=== PATIENT | female | born 2000 | race Caucasian/White ===

== ENCOUNTER 2018-07-23 11:35 | Emergency (ER) | payer OTHER, SELFPAY ==
[2018-07-23 11:37] VITALS: BP 133/73; PULSE 65; RESP 16; TEMP 36.7; O2SAT 99
--- NOTE | 2018-07-23 11:46 | US_ITS ---
STUDY: ULTRASOUND OF THE FEMALE PELVIS - COMPLETE REASON FOR EXAM: Female, 17 years old. Bleeding for 5 months LMP: TECHNIQUE: Transvaginal TECHNICAL QUALITY: Adequate. COMPARISON: None. FINDINGS: The uterus is anteverted and is in a midline position. The uterus measures 6.8 x 5.3 x 3.6 cm. On the transverse view there is a suggestion of an echogenicity towards the cervix measures approximately 5.3 x 2.6 mm not definitively seen on the sagittal view. The endometrium measures 3 mm in thickness, and is hyperechoic. There is no demonstrated endometrial mass. There is a focal fluid density within the endometrium somewhat distending the lower uterine endometrial canal from 3 mm to 6 mm. There is no demonstrated myometrial mass. I.U.D. - The patient does not have an I.U.D. The right ovary is visualized. The right ovary measures 3.6 x 2.5 x 1.8 cm. There is a right ovarian cyst, measuring 1.7 x 1.2 x 0.8 cm. There are multiple small right ovarian follicles. There is no visualized right adnexal mass or complex lesion. There is normal arterial and normal venous vascularity. The left ovary is visualized. The left ovary measures 2.8 x 1.9 x 1.4 cm. Multiple small ovarian follicles. There is no visualized left adnexal mass or complex lesion. There is normal arterial and normal venous vascularity. There is no fluid in the cul-de-sac. The pre void volume of the bladder was ml. The post void volume of the bladder was ml. Polycystic ovary disease: Not excluded. US/Transvaginal Non- IMPRESSION: Possible small endometrial mass or polyp. Fluid density within the endometrium. Small bilateral ovarian follicles with one dominant right ovarian follicle. Recommend correlation with laboratory values could possibly indicate polycystic ovarian disease. No evidence of ovarian torsion. Electronically Signed: Leonora Prajapati MD at 14:26 EST Tel , Service support ,
--- NOTE | 2018-07-23 12:01 | ED.VISSUMM ---
- ER Visit Summary Date of Service: 07/23/18 Chief Complaint: Vaginal bleeding History of Present Illness: The patient is a 17 F with vaginal bleeding for 5 months. Over the last week it has become much more severe and she has used 4 tampons and pads just over the last few hours. She is also reporting lower abdominal cramping for the past 3 days bilaterally. She never had this before. She thought that the bleeding might be from a Nexplanon placement as she read that it can cause some spotting. She has been tolerating it up to the last several days. No other associated symptoms. No urinary symptoms. No discharge. No other GI symptoms or pain. Physical Examination: Afebrile and vital signs unremarkable. Skin appears normal. Heart regular. Lungs clear. Abdomen soft and nontender. Test Results: Laboratory studies, urinalysis, and ultrasound pending. Emergency Department Course and Treatment: Patient declined pain medicine and nausea medicine while awaiting results. CBC normal. CMP and coags unremarkable. Urinalysis and test negative. Ultrasound showed a small endometrial mass or polyp with fluid in the endometrium. She has multiple cysts concerning for PCOS. Patient has stable vital signs. I believe she is appropriate for outpatient follow-up. She was referred to Dr. Vang for follow up. Treatment Plan: As above Disposition: Discharge Impression: 1. Vaginal bleeding This note was generated with [employer] dictation software. It may contain incorrect words, spelling, and punctuation that were not noted in review of the chart prior to signing ED Disposition - Plan for ED Patient: Chief Complaint: Vag Bleeding Referrals: Albin Koch MD [Primary Care Provider] -
[2018-07-23 12:14] LABS: Bacteria 0 SEEN /hpf (None Seen); Mucous, Urine 0 SEEN /hpf (<or=2+); Squamous Epithelial Cells - UA 0 SEEN /hpf (5-10); White Blood Cells 0 SEEN /hpf (0-5)
[2018-07-23 12:16] LABS: Absolute Lymphocyte Count 1.96 X10^3/ul (0.83-4.51); Absolute Neutrophil Count 3.6 X10^3/uL (2.0-7.7); Basophil# 0.02 X10^3/uL; Basophil% 0.3 % (0-1); Eosinophil# 0.04 X10^3/uL; Eosinophils% 0.7 % (0-5); Hematocrit 40.1 % (37-47); Hemoglobin 13.5 g/dl (12.0-15.0); Lymphocyte # 1.96 X10^3/ul (4.0); Lymphocyte % 32.1 % (19-41); Mean Corp Hgb Conc 33.7 g/gl (32-36); Mean Corpuscular Hgb 29.9 pg (27.0-32.0); Mean Corpuscular Volume 88.7 fL (81-99); Mean Platelet Vol. 9.4 fl (6.2-12.0); Monocyte# 0.45 X10^3/uL; Monocyte% 7.4 % (0-10); Neutrophil # 3.64 X10^3/uL (2.7-7.7); Neutrophil % 59.5 % (47-70); POSITIVE COUNT NO; POSITIVE DIFFERENTIAL NO; POSITIVE MORPHOLOGY NO; Platelet Count 244 K/mm3 (150-450); RBC Distribution Width CV 12.3 % (11.6-14.6); RBC Distribution Width SD 39.3 fl (35.1-43.9); Red Blood Count 4.52 M/mm3 (4.2-5.4); White Blood Count 6.1 K/mm3 (4.4-11.0)
[2018-07-23 12:16] LABS: Color, Urine Straw (Yellow); Glucose, Dipstick Normal (Normal); Ketone-Dipstick Negative (Negative); Leukocyte Esterase-Dipstick Negative /ul (Negative); Nitrite-Dipstick Negative (Negative); Occult Blood-Urine 50 /ul (Negative); Protein-Dipstick Negative (Negative); Urine Bilirubin Dipstick Negative (Negative); Urine Clarity Clear (Clear); Urine Urobilinogen Normal (Normal)
[2018-07-23 12:22] LABS: Red Blood Cells-Urine 0-5 SEEN /hpf (0-5)
[2018-07-23 12:32] LABS: ALB/GLOB Ratio 1.5 RATIO (0.9-2.4); AST(SGOT) 17 U/L (15-37); Alanine Aminotransfer ALT/SGPT 22 U/L (13-56); Albumin, Serum 4.4 g/dL (3.2-5.0); Alkaline Phosphatase 74 U/L (45-117); Anion Gap 7 (5-15); BUN 15 mg/dL (7-18); BUN/Creat Ratio 19.2 RATIO (10-20); Chloride 108 mmol/L (98-107); Creatinine, Serum 0.78 mg/dL (0.55-1.02); EST Glomerular Filtration Rate 100 mL/min (>60); Est Glom Filt Rate - Afr Amer 121 mL/min (>60); Estimated Creatinine Clearance 99.68 ml/min; Globulin 2.9 g/dL (2.2-4.2); Glucose 85 mg/dL (74-106); Potassium 3.7 mmol/L (3.5-5.1); Protein, Total 7.3 g/dL (6.4-8.2); Sodium Level 142 mmol/L (136-145)
[2018-07-23 12:33] LABS: Pregnancy, Serum, hCG Quali. NEGATIVE Negative (0-9 Nonpreg)
[2018-07-23 13:06] LABS: International Normalized Ratio 1.1; Prothrombin Time (Protime)PT. 13.8 SECONDS (11.7-14.9)
[2018-07-23 13:07] LABS: Partial Thromboplast Time 29.3 Seconds (24.1-36.2)
[2018-07-23 14:25] VITALS: BP 99/61; PULSE 63; RESP 16; O2SAT 99
--- NOTE | 2018-07-23 15:02 | ED.DEP ---
ED Disposition - Plan for ED Patient: Chief Complaint: Vag Bleeding Instructions: ED Bleed Irregular Vaginal Referrals: Sugey Vang MD [STAFF PHYSICIAN] -
[2018-07-23 15:24] VITALS: BP 114/68; PULSE 61; RESP 14; TEMP 36.7; O2SAT 100
--- OUTSIDE RECORDS SUMMARY | 2018-09-16 20:03 | XMS RPT_ITS ---
:2000 Author Organization [facility] Care Team Providers Name Role Phone Richmond Washington Attending Unavailable Albin Koch Primary Care Unavailable PROBLEMS PROBLEMS No Problem Records FoundPROCEDURES PROCEDURES No Procedure Records FoundRESULTS RESULTS DISCHARGE INSTRUCTION Observed: 07/23/2018 Status: F Source: [place] 4:15 PM [facility] REPOSITORY [facility] Medical Records Department [address] [place] [address] Discharge Instruction 07/23/18 1502 MR#: [id number] Acct: [id number] Name: TEREZA RASCON Rep #: [id number] : 2000 17 From: Richmond Wsahington MD PCP: Albin Koch MD Status: DEP ER ED Disposition - Plan for ED Patient: Chief Complaint: Vag Bleeding Instructions: ED Bleed Irregular Vaginal Referrals: Sugey Vang MD [STAFF PHYSICIAN] - What to do if you have Problems For any increased pain, shortness of breath, bleeding, nausea or vomiting, chest pain, or any unexpected problems, contact your Primary Care Provider. Call [facility] ([phone]) or report to the closest Emergency Room. Call 911 if necessary. 07/23/18 1615 <Electronically signed by Richmond Washington MD> Date Richmond Washington MD Cosigner Signature (If Indicated): Date CC: Albin Koch MD EMERGENCY DEPARTMENT Observed: 07/23/2018 Status: F Source: [place] SUMMARY 4:15 PM [facility] REPOSITORY [facility] Medical Records Department [address] [place] [address] Emergency Department Summary 07/23/18 1201 MR#: [id number] Acct: [id number] Name: TEREZA RASCON Rep #: [id number] : 2000 17 From: Richmond Washington MD PCP: Albin Koch MD Status: DEP ER - ER Visit Summary Date of Service: 07/23/18 Chief Complaint: Vaginal bleeding History of Present Illness: The patient is a 17 F with vaginal bleeding for 5 months. Over the last week it has become much more severe and she has used 4 tampons and pads just over the last few hours. She is also reporting lower abdominal cramping for the past 3 days bilaterally. She never had this before. She thought that the bleeding might be from a Nexplanon placement as she read that it can cause some spotting. She has been tolerating it up to the last several days. No other associated symptoms. No urinary symptoms. No discharge. No other GI symptoms or pain. Physical Examination: Afebrile and vital signs unremarkable. Skin appears normal. Heart regular. Lungs clear. Abdomen soft and nontender. Test Results: Laboratory studies, urinalysis, and ultrasound pending. Emergency Department Course and Treatment: Patient declined pain medicine and nausea medicine while awaiting results. CBC normal. CMP and coags unremarkable. Urinalysis and test negative. Ultrasound showed a small endometrial mass or polyp with fluid in the endometrium. She has multiple cysts concerning for PCOS. Patient has stable vital signs. I believe she is appropriate for outpatient follow-up. She was referred to Dr. Vang for follow up. Treatment Plan: As above Disposition: Discharge Impression: 1. Vaginal bleeding This note was generated with [employer] dictation software. It may contain incorrect words, spelling, and punctuation that were not noted in review of the chart prior to signing ED Disposition - Plan for ED Patient: Chief Complaint: Vag Bleeding Referrals: Albin Koch MD [Primary Care Provider] - What to do if you have Problems For any increased pain, shortness of breath, bleeding, nausea or vomiting, chest pain, or any unexpected problems, contact your Primary Care Provider. Call [facility] ([phone]) or report to the closest Emergency Room. Call 911 if necessary. 07/23/18 8577 <Electronically signed by Richmond Washington MD> Date Richmond Washington MD Cosigner Signature (If Indicated): Date CC: Albin Koch MD CBC W/DIFF, AUTOMATED Collected: 07/23/2018 Status: F Source: [place] 12:07 PM [facility] REPOSITORY TYPE CODE TESTS RESULT OUT OF RANGE REFERENCE UNITS LAB L100.1000 4.4-11.0 K/mm3 Normal WBC 6.1 LAB L100.1200 4.2-5.4 M/mm3 Normal RBC 4.52 LAB L100.1300 12.0-15.0 g/dl Normal HGB 13.5 LAB L100.1400 37-47 % Normal HCT 40.1 LAB L100.1500 81-99 fL Normal MCV 88.7 LAB L100.1600 27.0-32.0 pg Normal MCH 29.9 LAB L100.1700 32-36 g/gl Normal MCHC 33.7 LAB L100.1810 11.6-14.6 % Normal RDW CV 12.3 LAB L100.1820 35.1-43.9 fl Normal RDW SD 39.3 LAB L100.1900 150-450 K/mm3 Normal PLT 244 LAB L100.2000 6.2-12.0 fl Normal MPV 9.4 LAB L100.2100 47-70 % Normal NEUT% 59.5 LAB L100.2200 19-41 % Normal LY% 32.1 LAB L100.2300 0-10 % Normal MONO% 7.4 LAB L100.2400 0-5 % Normal EO% 0.7 LAB L100.2500 0-1 % Normal BASO% 0.3 LAB L100.2550 0.0-0.9 % Normal IM GRAN % 0.000 Result Comment: IG% - Immature Granulocytes (promyelocytes, myelocytes and metamyelocytes) > 1% indicates that a LEFT SHIFT is Present. LAB L100.2620 2.0-7.7 X10 3/uL Normal Absolute Neut 3.6 LAB L100.2720 0.83-4.51 X10 3/ul Normal Absolute Lymph 1.96 Performed By: #### L100.0100 #### [facility] [place], [address] COMPREHENSIVE METABOLIC Collected: 07/23/2018 Status: F Source: [place] [facility] 12:07 PM [facility] REPOSITORY TYPE CODE TESTS RESULT OUT OF RANGE REFERENCE UNITS LAB L501.0100 74-106 mg/dL Normal GLU 85 Result Comment: Please note revised GLUCOSE reference range effective 2017. LAB L501.1000 7-18 mg/dL Normal BUN 15 LAB L501.1100 0.55-1.02 mg/dL Normal CREAT,SERUM 0.78 Result Comment: The validity of the calculated GFR AND GFRAA in patients over 70 years has not been determined. Clinical correlation is essential. LAB L501.1110 >60 mL/min Normal EST GFR 100 Result Comment: Non- GFR Calc LAB L501.1115 >60 mL/min Normal EST GFR - AA 121 Result Comment: GFR Calc LAB L501.1255 ml/min Normal Estimated CRCL 99.68 LAB L501.1300 10-20 RATIO Normal BUN/CRE 19.2 LAB L501.1500 6.4-8. g/dL Normal 2 T PROT 7.3 LAB L501.1800 3.2-5. g/dL Normal 0 ALB 4.4 LAB L501.1950 2.2-4. g/dL Normal 2 GLOB 2.9 LAB L501.2000 0.9-2. RATIO Normal 4 A/G 1.5 LAB L501.2200 8.5-10 mg/dL Normal .1 CA 9.0 LAB L501.4100 15-37 U/L Normal AST 17 LAB L501.4305 45-117 U/L Normal ALK P 74 LAB L501.4405 13-56 U/L Normal ALT 22 LAB L501.4600 0.20-1 mg/dL Normal .00 T BILI 0.60 LAB L501.5300 136-14 mmol/L Normal 5 NA 142 LAB L501.5600 3.5-5. mmol/L Normal 1 K 3.7 LAB L501.5900 98-107 mmol/L High CL 108 LAB L501.6100 21.0-3 mmol/L Normal 2.0 CO2 27.0 LAB L501.6200 5-15 Normal GAP 7 Performed By: #### L500.4050 #### [facility] [address] [place], [address] ,SERUM,HCG QUALI. Collected: Status: F Source: [place] 07/23/2018 12:07 PM [facility] REPOSITORY TYPE CODE TESTS RESULT OUT OF REFERENCE UNITS RANGE LAB L700.7000 0-9 Nonpreg Negative Normal HCGSQUAL NEGATIVE LAB L700.6700 =>Qualitative mIU/mL Normal HCG Qual < 1 triggr Performed By: #### L700.6800 #### [facility] [address] [facility] [place], [address] PROTHROMBIN TIME W/INR Collected: 07/23/2018 Status: F Source: [place] 12:07 PM [facility] REPOSITORY TYPE CODE TESTS RESULT OUT OF RANGE REFERENCE UNITS LAB L300.4150 11.7-14.9 SECONDS Normal PROTIME 13.8 LAB L300.4200 Normal INR 1.1 Performed By: #### L300.3900, L300.4310 #### [facility] [facility] [place], [address] PARTIAL THROMBOPLAST Collected: 07/23/2018 Status: F Source: [place] TIME 12:07 PM [facility] REPOSITORY TYPE CODE TESTS RESULT OUT OF RANGE REFERENCE UNITS LAB L300.4310 24.1-36.2 Seconds Normal PTT 29.3 Performed By: #### L300.3900, L300.4310 #### [facility] [address] [place], [address] URINALYSIS, COMPLETE Collected: 07/23/2018 Status: F Source: [place] 12:00 PM [facility] REPOSITORY Order Comment: How was Urine Obtained? CLEAN CATCH TYPE CODE TESTS RESULT OUT OF RANGE REFERENCE UNITS LAB L400.3000 Yellow COLOR Normal Straw LAB L400.3050 Clear Normal CLARITY Clear LAB L400.3200 Normal mg/dl Normal GLUCOSE, UR Normal LAB L400.3300 Negative mg/dL Normal BILIRUBIN URINE Negative LAB L400.3400 Negative mg/dl Normal KETONE UR Negative LAB L400.3465 1.002-1.030 Normal SP.GR. DIPSTX 1.010 LAB L400.3550 5.0 - 8.0 pH UR Normal 8.0 LAB L400.3600 Negative mg/dl PROT Normal DIPSTX Negative LAB L400.3700 Normal mg/dl Normal UROBILI Normal LAB L400.3750 Negative Normal NITRITE UR Negative LAB L400.3780 Negative /ul High 50 OCCULT BLOOD-UR LAB L400.3800 Negative /ul LEUK Normal ESTERASE Negative LAB L400.4050 0-5 /hpf WBC 0 Normal SEEN LAB L400.4100 0-5 /hpf Normal RBC-UA 0-5 SEEN LAB L400.4150 5-10 /hpf SQUAM 0 Normal EPI SEEN LAB L400.4300 None Seen /hpf 0 Normal BACTERIA SEEN LAB L400.4350 <or=2+ /hpf 0 Normal MUCUS, URINE SEEN Performed By: #### L400.0001 #### [facility] [address] [facility] [place], [address] TRANSVAGINAL Observed: 07/23/2018 Status: F Source: [place] NON- 11:47 AM [facility] REPOSITORY [facility] Imaging Services [address] [place] [address] Transvaginal Non- MR#: [id number] Acct: [id number] Name: TEREZA RASCON Rep #: [id number] : 2000 F 17 From: Leonora Prajapati MD PCP: Albin Koch MD Status: REG ER Study: Transvaginal Non- Date of Exam: 07/23/18 Exam# [id number] Ordering Dr: Richmond Washington MD STUDY: ULTRASOUND OF THE FEMALE PELVIS - COMPLETE REASON FOR EXAM: Female, 17 years old. Bleeding for 5 months LMP: TECHNIQUE: Transvaginal TECHNICAL QUALITY: Adequate. COMPARISON: None. FINDINGS: The uterus is anteverted and is in a midline position. The uterus measures 6.8 x 5.3 x 3.6 cm. On the transverse view there is a suggestion of an echogenicity towards the cervix measures approximately 5.3 x 2.6 mm not definitively seen on the sagittal view. The endometrium measures 3 mm in thickness, and is hyperechoic. There is no demonstrated endometrial mass. There is a focal fluid density within the endometrium somewhat distending the lower uterine endometrial canal from 3 mm to 6 mm. There is no demonstrated myometrial mass. I.U.D. - The patient does not have an I.U.D. The right ovary is visualized. The right ovary measures 3.6 x 2.5 x 1.8 cm. There is a right ovarian cyst, measuring 1.7 x 1.2 x 0.8 cm. There are multiple small right ovarian follicles. There is no visualized right adnexal mass or complex lesion. There is normal arterial and normal venous vascularity. The left ovary is visualized. The left ovary measures 2.8 x 1.9 x 1.4 cm. Multiple small ovarian follicles. There is no visualized left adnexal mass or complex lesion. There is normal arterial and normal venous vascularity. There is no fluid in the cul-de-sac. The pre void volume of the bladder was ml. The post void volume of the bladder was ml. Polycystic ovary disease: Not excluded. US/Transvaginal Non- IMPRESSION: Possible small endometrial mass or polyp. Fluid density within the endometrium. Small bilateral ovarian follicles with one dominant right ovarian follicle. Recommend correlation with laboratory values could possibly indicate polycystic ovarian disease. No evidence of ovarian torsion. Electronically Signed: Leonora Prajapati MD at 14:26 EST Tel , Service support , CC: Albin Koch MD; Richmond Washington MD Public Address System Operator: Signed ALLERGIES ALLERGIES DATE TYPE / CODE NAME / CODE REACTION SEVERITY SOURCE 07/23/2018 Drug No Known Unknown [facility] Allergy/4160 Allergies/F00 Hospital [address]10(SNOMED [id number](RXNOR Repository CT) M) ENCOUNTERS ENCOUNTERS ADMIT/DISCHARGE ACCOUNT ADMITTING ENCOUNTER LOCATION SOURCE NUMBER CLASS 07/23/2018/ [id number] Emergency Niranjan Niranjan [address] [place] [address] ing:ED Repository PAYERS PAYERS ENCOUNTER GUARANTOR PAYER SUBSCRIBER SOURCE 07/23/2018 TEREZA Arriaza Primary GWENDOLYN TARAHSCOTT [place] [id number] Insurance:[address] Number: Repository [id number]: [phone] [phone] () Date:[id number] [id number]: 07/23/2018 Secondary NOT GIVENSCOTT Niranjan Insurance:SELF PAY [facility] Number: Effective Repository Date:2018-07-23
== END 2018-07-23 15:25 | disposition home or self-care (01) ==
PROVIDERS: Emergency Provider Emergency Medicine; Family Provider Pediatrics; PCP Pediatrics
DX: N93.9 Abnormal uterine and vaginal bleeding, unspecified (principal); R10.31 Right lower quadrant pain; R10.32 Left lower quadrant pain; R11.0 Nausea; N83.209 Unspecified ovarian cyst, unspecified side; Z97.5 Presence of (intrauterine) contraceptive device
CPT/HCPCS: 76830; 80053; 81001; 84703; 85025; 85610; 85730; 93976; 99283; A4216